=== PATIENT | female | born 1985 | race Caucasian/White ===

== ENCOUNTER 2016-05-01 19:26 | Emergency (ER) | payer SELFPAY ==
[2016-05-01] MEDS ORDERED: Naproxen 500 MG TAB ONE (20:03)
[2016-05-01] MEDS ORDERED: HYDROcodone/Acetaminophen 10/325 mg Tablet ONE (20:03)
[2016-05-01] MEDS ORDERED: AMOXicillin 250 MG CAP ONE (20:03)
[2016-05-01] MEDS ORDERED: Benzonatate 100 MG CAP ONE (20:08)
[2016-05-01] MEDS ORDERED: Oxymetazoline HCl 0.05% ( 15 ML ) ONE (20:08)
== END 2016-05-01 20:15 | disposition home or self-care (01) ==
LOC: MADERS 19:26
DX: J20.9 Acute bronchitis, unspecified (principal); J01.90 Acute sinusitis, unspecified; K02.9 Dental caries, unspecified; F32.9 Major depressive disorder, single episode, unspecified; F17.210 Nicotine dependence, cigarettes, uncomplicated
CPT/HCPCS: 99283

== ENCOUNTER 2016-05-08 12:12 | Emergency (ER) | payer SELFPAY ==
[2016-05-08] MEDS ORDERED: Clindamycin 150 MG CAP ONE (12:49)
== END 2016-05-08 13:00 | disposition home or self-care (01) ==
LOC: MADERS 12:12
DX: K04.7 Periapical abscess without sinus (principal); L03.211 Cellulitis of face; F32.9 Major depressive disorder, single episode, unspecified; F17.210 Nicotine dependence, cigarettes, uncomplicated
CPT/HCPCS: 99282

== ENCOUNTER 2016-11-30 08:58 | Emergency (ER) | payer MEDICAID ==
[2016-11-30] MEDS ORDERED: Ketorolac Tromethamine 60 MG/2 ML VIAL ONE (09:35)
[2016-11-30] MEDS ORDERED: Clindamycin 150 MG CAP ONE (09:35)
== END 2016-11-30 09:40 | disposition home or self-care (01) ==
LOC: MADERS 08:58
DX: K04.7 Periapical abscess without sinus (principal); K02.9 Dental caries, unspecified; R03.0 Elevated blood-pressure reading, without diagnosis of hypertension; F31.9 Bipolar disorder, unspecified; F20.9 Schizophrenia, unspecified; F17.210 Nicotine dependence, cigarettes, uncomplicated
CPT/HCPCS: 96372; J1885

== ENCOUNTER 2017-02-09 15:55 | Emergency (ER) | payer OTHER | END 2017-02-09 16:15 | disposition left against medical advice (07) | LOC: MADERS 15:55 | DX: Z53.21 Procedure and treatment not carried out due to patient leaving prior to being seen by health care provider (principal) ==

== ENCOUNTER 2017-03-16 15:58 | Emergency (ER) | payer OTHER ==
[2017-03-16] MEDS ORDERED: Ibuprofen 600 MG TAB ONE (16:46)
[2017-03-16] MEDS ORDERED: Amoxicillin/Potassium Clav 875 MG TAB ONE (16:46)
== END 2017-03-16 16:45 | disposition home or self-care (01) ==
LOC: MADERS 15:58
DX: K04.7 Periapical abscess without sinus (principal); F17.210 Nicotine dependence, cigarettes, uncomplicated
CPT/HCPCS: 99283

== ENCOUNTER 2017-09-12 00:25 | Emergency (ER) | payer OTHER ==
[2017-09-12] MEDS ORDERED: Oxymetazoline HCl 0.05% ( 15 ML ) ONE (02:24)
[2017-09-12] MEDS ORDERED: Naproxen 500 MG TAB ONE (02:24)
[2017-09-12] MEDS ORDERED: AMOXicillin 250 MG CAP ONE (02:24)
[2017-09-12] MEDS ORDERED: HYDROcodone/Acetaminophen 10/325 mg Tablet ONE (02:24)
== END 2017-09-12 02:30 | disposition home or self-care (01) ==
LOC: MADERS 00:25
DX: J01.90 Acute sinusitis, unspecified (principal); H66.92 Otitis media, unspecified, left ear; F17.210 Nicotine dependence, cigarettes, uncomplicated
CPT/HCPCS: 99283

== ENCOUNTER 2018-08-03 17:37 | Emergency (ER) | payer SELFPAY ==
[2018-08-03 19:08] LABS: Bilirubin Negative (Negative); Blood, Urine Negative (Negative); Glucose, Urine (Dipstick) Negative (Negative); Leukocyte Negative (Negative); Nitrite Negative (Negative); Protein, Urine (Dipstick) Negative (Neg-Trace); Urobilinogen 0.2 mg/dL (0.2-1.0)
[2018-08-03 19:10] LABS: Clarity Hazy (Clear); Specific Gravity, Urine 1.025 (1.002-1.036)
[2018-08-03 19:13] LABS: Pregnancy Test - Urine (BHCG) Negative (Negative); Pregu Control Background? CLEAR/WHITE (CLR/WHITE); Pregu Control Bar Appear? YES (CONTROL BAR); Specific Gravity 1.025 (1.002-1.036)
--- NOTE | 2018-08-03 19:48 | RAD ---
2 views chest. HISTORY: Chest pain. Nausea and vomiting. 2 views chest obtained. The lungs are well aerated. No evidence of active intrathoracic disease seen. No evidence of effusions, pneumonia or pneumothorax seen Impression normal 2 views chest.
[2018-08-03] MEDS ORDERED: Ondansetron ODT 4 MG TAB ONE (20:14)
[2018-08-03] MEDS ORDERED: traMADol HCl 50 MG TAB ONE (20:15)
== END 2018-08-03 20:29 | disposition home or self-care (01) ==
LOC: MADERS 17:37
DX: N64.52 Nipple discharge (principal); R11.2 Nausea with vomiting, unspecified; F17.210 Nicotine dependence, cigarettes, uncomplicated
CPT/HCPCS: 71046; 81003; 81025; Q0162

== ENCOUNTER 2018-09-18 10:19 | Emergency (ER) | payer SELFPAY | END 2018-09-18 11:00 | disposition home or self-care (01) | LOC: MADERS 10:19 | DX: S70.361A Insect bite (nonvenomous), right thigh, initial encounter (principal); S30.860A Insect bite (nonvenomous) of lower back and pelvis, initial encounter; F17.210 Nicotine dependence, cigarettes, uncomplicated; W57.XXXA Bitten or stung by nonvenomous insect and other nonvenomous arthropods, initial encounter | CPT/HCPCS: 99281 ==

== ENCOUNTER 2019-01-31 17:00 | Emergency (ER) | payer SELFPAY | END 2019-01-31 17:23 | disposition home or self-care (01) | LOC: MADERS 17:00 | DX: L85.3 Xerosis cutis (principal) | CPT/HCPCS: 99282 ==